=== PATIENT | female | born 1995 | race African-American/Black ===

== ENCOUNTER 2016-12-01 21:43 | Emergency (ER) | payer MEDICAID ==
[~2016-12-01 21:43] MED LIST: BACT2CRE TOP; TRIA.1%T TOP
--- NOTE | 2016-12-01 23:05 | PD ---
HPI Chief Complaint Spotting Date Seen: Dec 01, 2016 Time Seen: 22:00 Travel History International Travel<30 Days: No Contact w/Intl Traveler<30Days: No Known Affected Area: No History of Present Illness HPI The patient is a 21-year-old primigravida at 18 weeks gestation who comes today noting that she had a small amount of blood on the tissue when she wiped. She denies any cramping, vaginal discharge or leakage of fluid. No abdominal pain, fever or chills. No dysuria hematuria or frequency. No change in bowel habits Para: 0 : 1 History Past Medical History Medical History: Denies Significant Hx Obstetric History Obstetric History Primigravida receiving care which has been uncomplicated with the exception of treatment for chlamydia 2 weeks ago. Her and her partner were treated. Past Surgical History Surgical History: No Previous Surgery Family History Family History: Negative Social History Alcohol Use: No Tobacco Use: No Substance Abuse: No Allergies-Medications (Allergen,Severity, Reaction): Coded Allergies: No Known Allergies (Verified , 09/10/14) Home Meds Active Scripts Mupirocin 2% Cream (30 gm) (Bactroban 2% Cream (30 gm))2 % Cre2 % Top Q12 #1 Cre APPLY TO Prov:Darline Serrano 09/10/14 Triamcinolone Acet (Kenalog)0.1 % Cre1 Applic TOP BID #1 CRE Prov:Darline Serrano 09/10/14 Review of Systems Except as stated in HPI: all other systems reviewed are Neg Physical Exam Narrative GENERAL: Well-nourished, well-developed patient. SKIN: Warm and dry. HEAD: Normocephalic and atraumatic. EYES: No scleral icterus. No injection or drainage. ENT: No nasal drainage noted. Mucous membranes pink. Airway patent. NECK: Supple, trachea midline. No JVD. CARDIOVASCULAR: Regular rate and rhythm without murmurs, gallops, or rubs. RESPIRATORY: Breath sounds equal bilaterally. No accessory muscle use. ABDOMEN/GI: Abdomen soft, non-tender, bowel sounds present, no rebound, no guarding Gravid to [-] weeks size Fundal Height: [-Umbilicus] GENITOURINARY: External Genitalia: intact and normal in appearance BUS glands: [Negative-] Cervix: [Clean-] Dilatation: [Closed-] Effacement: [-Long Station: [-] Presentation: [-] Membranes: [intact or ruptured] Uterine Contractions: [-] FHT's: Category: [-] Baseline: [140s-] Reactive: [-] Variability: [-] Decels: [-] EXTREMITIES: No cyanosis or edema. BACK: Nontender without obvious deformity. No CVA tenderness. NEUROLOGICAL: Awake and alert. Motor and sensory grossly within normal limits. Five out of 5 muscle strength in all muscle groups. Normal speech. Data Data Vital Signs Reviewed: Yes Orders Vital Signs (Adult) .ON ADMISSION (12/01/16 22:47) ^ Labor Status (12/01/16 22:47) Genital Culture(C&S)(Gc)(Gbs) (12/01/16 22:47) Gc And Chlamydia Pcr (12/01/16 22:47) MDM Medical Record Reviewed: Yes Narrative Course / MDM Assessment: 18 week intrauterine with isolated episode of spotting which was minimal Plan: Urine test of cure for chlamydia was ordered. Patient is given precautions for follow-up. She will continue to her previously scheduled care appointments. Diagnosis Diagnosis: Primary Impression: 18 weeks gestation of Additional Impression: Chlamydial cervicitis Disposition: DISCHARGE HOME Condition: Good Patient Instructions: General Instructions, Labor (ED) Additional Instructions: RETURN FOR CONTRACTIONS, LOSS OF FLUID (WATER BREAKING), VAGINAL BLEEDING, OR DECREASED MOVEMENT DRINK 8-10 LARGE GLASSES OF WATER EVERY DAY KEEP SCHEDULED APPOINTMENT WITH YOUR PROVIDER Departure Forms: Tests/Procedures Marlon Rodriguez MD Dec 01, 2016 23:05
[2016-12-02 02:56] LABS: CHLAMYDIA PCR NOT DETECTED (NOT DETECT); NEISSERIA PCR NOT DETECTED (NOT DETECT)
== END 2016-12-01 23:37 | disposition home or self-care (01) ==
LOC: HOBED 21:43
DX: O98.312 Other infections with a predominantly sexual mode of transmission complicating pregnancy, second trimester (principal); A56.09 Other chlamydial infection of lower genitourinary tract; Z3A.18 18 weeks gestation of pregnancy
CPT/HCPCS: 87491; 87591; 99284

== ENCOUNTER 2017-03-14 21:49 | Emergency (ER) | payer MEDICAID ==
[2017-03-14 21:51] VITALS: BP 129/73; PULSE 70; RESP 16; TEMP 98.8; O2SAT 100
== END 2017-03-14 22:16 | disposition left against medical advice (07) ==
LOC: NED 21:49
DX: N94.9 Unspecified condition associated with female genital organs and menstrual cycle (principal)
CPT/HCPCS: 99281

== ENCOUNTER 2017-10-19 19:04 | Emergency (ER) | payer OTHER, MEDICAID ==
[~2017-10-19] VITALS: Ht 165.1 cm; Wt 74.0 kg
[2017-10-19 19:06] VITALS: BP 187/86; PULSE 68; RESP 16; TEMP 98.6; O2SAT 100
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
[2017-10-19 20:29] VITALS: BP 180/123; PULSE 58; RESP 20; O2SAT 100
[2017-10-19] MEDS ORDERED: KETOROLAC TROMETHAMINE 30 MG/ML (IVP) VIAL IV PUSH ONE (20:30)
[2017-10-19] MEDS ORDERED: SODIUM CHLOR 0.9% 1000 ML INJ 1,000 ML IV ONE (20:30)
[2017-10-19] MEDS ORDERED: METOCLOPRAMIDE HCL 10 MG/2 ML VIAL IV PUSH ONE (20:30)
[2017-10-19] MEDS ORDERED: diphenhydrAMINE HCL 50 MG/ML VIAL IV PUSH ONE (20:30)
[2017-10-19 20:32] VITALS: BP 183/117; PULSE 59; RESP 20
[2017-10-19 21:44] VITALS: BP 192/110; PULSE 62; RESP 20; O2SAT 99
== END 2017-10-19 22:19 | disposition home or self-care (01) ==
LOC: NEPD 19:04
DX: R51 Headache (principal); I10 Essential (primary) hypertension
CPT/HCPCS: 96361; 96374; 96375; 99284; J1200; J1885; J2765; J7030